=== PATIENT | male | born 1995 | race Two or more races ===

== ENCOUNTER 2018-04-25 20:08 | Emergency (ER) | payer SELFPAY ==
[2018-04-25] MEDS ORDERED: Tdap Vaccine 0.5 ml Vial (10-64 yrs) IM ONE (20:31)
--- NOTE | 2018-04-25 21:39 | ED PDOC ---
Upper Extremity Pain/Injury Time Seen by Provider: 04/25/18 20:29 Chief Complaint (Nursing): Abnormal Skin Integrity Chief Complaint (Provider): Left Arm Laceration History Per: Patient History/Exam Limitations: no limitations Onset/Duration Of Symptoms: Days (x1) Current Symptoms Are (Timing): Still Present Additional Complaint(s): 22 y/o male with no significant PMHx presenting for evaluation of left arm injury x1 day. Patient states earlier today he accidentally cut his left forearm with a circular saw. He denies any numbness, tingling, foreign body sensation. Tetanus is not UTD. PMD: None reported Past Medical History Reviewed: Historical Data, Nursing Documentation, Vital Signs Vital Signs: Last Vital Signs Temp 99.1 F 04/25/18 20:23 Pulse 74 04/25/18 20:23 Resp 18 04/25/18 20:23 BP 151/96 H 04/25/18 20:23 Pulse Ox 98 04/25/18 20:23 - Medical History PMH: No Chronic Diseases - Surgical History Surgical History: No Surg Hx - Family History Family History: States: Unknown Family Hx - Allergies Allergies/Adverse Reactions: Allergies Allergy/AdvReac Type Severity Reaction Status Date / Time No Known Allergies Allergy Verified 04/25/18 20:25 Review of Systems ROS Statement: Except As Marked, All Systems Reviewed And Found Negative Skin: Positive for: Lesions (laceration to left forearm) Neurological: Negative for: Numbness Physical Exam - Reviewed Nursing Documentation Reviewed: Yes Vital Signs Reviewed: Yes - Physical Exam Appears: Positive for: Non-toxic, No Acute Distress Extremity: Positive for: Normal ROM (full ROM actively of left elbow), Other (2 inch very superficial gaping laceration on the proximal medial left forearm, no active bleeding) Neurologic/Psych: Positive for: Alert, Oriented (x3) - ECG O2 Sat by Pulse Oximetry: 98 (RA) Pulse Ox Interpretation: Normal Medical Decision Making Medical Decision Making: Plan: -Laceration repair Procedure completed without complication. Patient tolerated procedure well. Instructed to return in 7-10 days for suture removal. Patient is stable for discharge. Pt. states he received tetanus shot < 5 years and does not want it now. Scribe Attestation: Documented by Enmanuel Lawson, acting as a scribe for Wayne Palma PA-C. Provider Scribe Attestation: All medical record entries made by the scribe were at my direction and personally dictated by me. I have reviewed the chart and agree that the record accurately reflects my personal performance of the history, physical exam, medical decision making, and the department course for this patient. I have also personally directed, reviewed, and agree with the discharge instructions and disposition. Procedures - Time-Out Type of Procedure: Laceration repair Site of Procedure: L forearm Correct Patient: Yes Correct Procedure: Yes Correct Site Marked: Yes PA/Tech: [employer] - Laceration/Wound Repair Proximal Medial Left Forearm Wound Length (cm): 5 Wound's Depth, Shape: superficial (very), irregular Wound Explored: clean Irrigated w/ Saline (ccs): 200 Betadine Prep?: Yes Anesthesia: 1% Lidocaine Volume Anesthetic (ccs): 4 Wound Debrided: minimal Wound Repaired With: Sutures Suture Size/Type: 4:0 (ethilon) Number of Sutures: 8 Layer Closure?: No Wound Complexity: Simple Disposition - Clinical Impression Clinical Impression: Arm laceration - Patient ED Disposition Is Patient to be Admitted: No Counseled Patient/Family Regarding: Diagnosis, Need For Followup - Disposition Referrals: [facility] [Outside] [facility] [Outside] Disposition: Routine/Home Disposition Time: 21:45 Condition: IMPROVED Additional Instructions: SUTURE REMOVAL IN 7-10 DAYS DRAGAN ANDINO, thank you for letting us take care of you today. Your provider was Sayra Castro MD and you were treated for ARM INJURY. The emergency medical care you received today was directed at your acute symptoms. If you were prescribed any medication, please fill it and take as directed. It may take several days for your symptoms to resolve. Return to the Emergency Department if your symptoms worsen, do not improve, or if you have any other problems. Please contact your doctor or call one of the physicians/clinics you have been referred to that are listed on the Patient Visit Information form that is included in your discharge packet. Bring any paperwork you were given at discharge with you along with any medications you are taking to your follow up visit. Our treatment cannot replace ongoing medical care by a primary care provider outside of the emergency department. Thank you for allowing the [facility] team to be part of your care today. If you had an X-Ray or CT scan: A Radiologist will review the ED reading if any change in treatment is needed we will contact you. If you had a blood, urine, or wound culture: It will take several days for the results, if any change in treatment is needed we will contact you. If you had an STI test: It will take 48 hours for the results. Please call after 1 week if you have not heard back. Instructions: Laceration Repair With Stitches (DC) Forms: [employer] (Turkish) Print Language: KITTITIAN
[2018-04-25 21:54] VITALS: BP 137/83; PULSE 72; RESP 15; TEMP 98.2
[2018-04-25 23:38] VITALS: O2SAT 98
== END 2018-04-25 21:54 | disposition home or self-care (01) ==
LOC: H.ER 20:08
DX: S41.112A Laceration without foreign body of left upper arm, initial encounter (principal); W31.2XXA Contact with powered woodworking and forming machines, initial encounter; Y92.89 Other specified places as the place of occurrence of the external cause